=== PATIENT | male | born 1995 | race African-American/Black ===

== ENCOUNTER 2016-12-23 10:28 | Emergency (ER) | payer OTHER ==
[~2016-12-23] VITALS: Ht 180.3 cm; Wt 61.2 kg
[~2016-12-23 10:28] MED LIST: ALBUTEROL0.09 MG/A2 IH; KEFLEX500 M1 PO; MOTRIN600 MG PO; Motrin,Rufen800 MG PO; NAPROSYN500 MG PO; SINGULAIR10 MG PO
[2016-12-23 10:45] VITALS: BP 130/77
[2016-12-23 11:07] LABS: HEMATOCRIT 46.4 % (42.0-52.0); HEMOGLOBIN 16.1 g/dl (14.0-18.0); MEAN CELL VOLUME 86.4 fl (80.0-94.0); MEAN CORPUSCULAR HGB CONC 34.7 g/dl (33.0-37.0); MEAN PLATELET VOLUME 9.9 fl (9.6-12.3); PLATELET COUNT AUTOMATED 195 10*3/uL (130-400); RED BLOOD COUNT 5.37 10*6/uL (4.50-5.90); RED CELL DISTRI WIDTH 12.6 % (0-14.5); WHITE BLOOD COUNT 13.2 10*3/uL (4.8-10.8)
[2016-12-23 11:20] LABS: ALBUMIN 4.7 gm/dl (3.1-4.5); ALKALINE PHOSPHATASE 67 U/L (45-117); BUN 15 mg/dl (7-24); CHLORIDE 106 mmol/L (98-107); CREATININE 1.11 mg/dL (0.70-1.30); POTASSIUM 4.4 mmol/L (3.5-5.1); SGOT/AST 24 IU/L (3-35); SGPT/ALT 26 U/L (12-78); SODIUM 141 mmol/L (136-145); TOTAL PROTEIN 8.3 gm/dL (6.4-8.2)
[2016-12-23 11:21] LABS: BILIRUBIN 1+ (NEGATIVE); BLOOD NEGATIVE (NEGATIVE); CLARITY SL CLOUDY (CLEAR); COLOR YELLOW (YELLOW); GLUCOSE NEGATIVE (NEGATIVE); KETONE 1+ (NEGATIVE); LEUKO ESTERASE NEGATIVE (NEGATIVE); NITRITE NEGATIVE (NEGATIVE); SPECIFIC GRAVITY >= 1.030 (1.005-1.030); UROBILINOGEN 0.2 E.U./dl (0.2-1.0)
[2016-12-23 11:32] LABS: BACTERIA TRACE; MUCOUS 3+
[2016-12-23 11:36] LABS: TOTAL CELLS COUNTED 100 #CELLS
[2016-12-23] MEDS ORDERED: ZOFRAN4 MG PO (11:36)
[2016-12-23 11:38] LABS: PLATELET SUFFICIENCY NORMAL (NORMAL); VACUOLATION OF NEUTROPHILS SLIGHT
== END 2016-12-23 14:29 | disposition home or self-care (01) ==
LOC: ED 10:28
PROVIDERS: Nurse Practitioner Family
DX: K52.9 Noninfective gastroenteritis and colitis, unspecified (principal); R03.0 Elevated blood-pressure reading, without diagnosis of hypertension; F17.200 Nicotine dependence, unspecified, uncomplicated

== ENCOUNTER 2017-11-19 18:25 | Emergency (ER) | payer OTHER ==
[~2017-11-19] VITALS: Ht 180.3 cm; Wt 63.5 kg
[~2017-11-19 18:25] MED LIST changes: +ZOFRAN4 MG PO
[2017-11-19 18:29] VITALS: BP 121/69
[2017-11-19] MEDS ORDERED: AMOXICILLIN500 M2 PO (19:33)
[2017-11-19] MEDS ORDERED: FLONASE ALLERG9.9 ML NAS (19:33)
== END 2017-11-19 19:43 | disposition home or self-care (01) ==
LOC: ED 18:25
DX: J01.90 Acute sinusitis, unspecified (principal)

== ENCOUNTER 2018-02-27 13:06 | Emergency (ER) | payer OTHER ==
[~2018-02-27] VITALS: Ht 177.8 cm; Wt 61.2 kg
[~2018-02-27 13:06] MED LIST changes: +AMOXICILLIN500 M2 PO; +FLONASE ALLERG9.9 ML NAS
[2018-02-27 13:07] VITALS: BP 139/81
[2018-02-27] MEDS ORDERED: AMOXICILLIN500 M2 PO (14:57)
[2018-02-27] MEDS ORDERED: ZOFRAN4 MG PO (14:57)
[2018-02-27] MEDS ORDERED: ZYRTEC10 MG PO (14:57)
== END 2018-02-27 15:13 | disposition home or self-care (01) ==
LOC: ED 13:06
DX: J01.90 Acute sinusitis, unspecified (principal); Z79.2 Long term (current) use of antibiotics; Z79.899 Other long term (current) drug therapy

== ENCOUNTER → 2018-04-24 | Outpatient (CLI) | payer OTHER ==
[~2018-04-24] MED LIST changes: +ZYRTEC10 MG PO
[2018-04-24 16:40] LABS: BASO # 0.1 10*3/uL (0.0-0.1); BASO % 0.5 % (0.0-1.0); EOS # 0.1 10*3/uL (0.0-0.4); EOS % 0.7 % (1.0-4.0); HEMATOCRIT 48.1 % (42.0-52.0); HEMOGLOBIN 16.3 g/dl (14.0-18.0); LYMPH # 0.4 10*3/uL (1.3-4.4); LYMPH % 3.7 % (27.0-41.0); MEAN CELL VOLUME 89.1 fl (80.0-94.0); MEAN CORPUSCULAR HGB 30.2 pg (27.0-31.0); MEAN CORPUSCULAR HGB CONC 33.9 g/dl (33.0-37.0); MEAN PLATELET VOLUME 10.2 fl (9.6-12.3); MONO # 0.5 10*3/uL (0.1-1.0); MONO % 5.5 % (3.0-9.0); NEUT # 8.7 10*3/uL (2.3-7.9); NEUT % 89.4 % (47.0-73.0); PLATELET COUNT AUTOMATED 181 10*3/uL (130-400); RED CELL DISTRI WIDTH 12.1 % (0-14.5); WHITE BLOOD COUNT 9.7 10*3/uL (4.8-10.8)
[2018-04-24 17:17] LABS: ALBUMIN 4.3 gm/dl (3.1-4.5); ALKALINE PHOSPHATASE 59 U/L (45-117); BUN 16 mg/dl (7-24); CHLORIDE 106 mmol/L (98-107); CHOLESTEROL 130 mg/dL (<200); CREATININE 1.13 mg/dL (0.70-1.30); HDL CHOLESTEROL 49 mg/dl (40-60); LDL CHOLESTEROL 69 mg/dL (9-159); SGOT/AST 17 IU/L (3-35); SGPT/ALT 20 U/L (12-78); SODIUM 140 mmol/L (136-145); TOTAL PROTEIN 7.5 gm/dL (6.4-8.2); TRIGLYCERIDES 59 mg/dl (<150); VLDL CHOLESTEROL 12 mg/dL (6-40)
== END | disposition home or self-care (01) ==
LOC: LAB 16:23
PROVIDERS: Pediatrics
DX: R11.10 Vomiting, unspecified (principal)

== ENCOUNTER 2019-02-27 16:28 | Emergency (ER) | payer OTHER ==
[~2019-02-27] VITALS: Ht 177.8 cm; Wt 63.5 kg
[2019-02-27 16:38] VITALS: BP 119/68
== END 2019-02-27 17:54 | disposition home or self-care (01) ==
LOC: ED 16:28
DX: J02.9 Acute pharyngitis, unspecified (principal); R51 Headache; R05 Cough; R11.0 Nausea; J45.909 Unspecified asthma, uncomplicated; Z79.2 Long term (current) use of antibiotics; Z79.899 Other long term (current) drug therapy

== ENCOUNTER 2019-03-01 05:02 | Emergency (ER) | payer OTHER ==
[~2019-03-01] VITALS: Ht 177.8 cm; Wt 63.5 kg
[2019-03-01 05:10] VITALS: BP 110/68
== END 2019-03-01 06:31 | disposition home or self-care (01) ==
LOC: ED 05:02
DX: R07.89 Other chest pain (principal); R07.81 Pleurodynia; R06.00 Dyspnea, unspecified; R05 Cough; J45.909 Unspecified asthma, uncomplicated

== ENCOUNTER 2020-02-18 17:28 | Emergency (ER) | payer OTHER ==
[~2020-02-18] VITALS: Ht 177.8 cm; Wt 64.0 kg
[2020-02-18 17:44] VITALS: BP 125/83
[2020-02-18] MEDS ORDERED: ANUSOL-HC25 MG R (20:56)
[2020-02-18] MEDS ORDERED: DULCOLAX STOOL100 MG PO (20:56)
== END 2020-02-18 21:19 | disposition home or self-care (01) ==
LOC: ED 17:28
DX: K64.4 Residual hemorrhoidal skin tags (principal); J45.909 Unspecified asthma, uncomplicated; F17.200 Nicotine dependence, unspecified, uncomplicated

== ENCOUNTER 2022-04-14 22:57 | Emergency (ER) | payer SELFPAY ==
[~2022-04-14] VITALS: Ht 177.8 cm; Wt 63.5 kg
[~2022-04-14 22:57] MED LIST changes: +ANUSOL-HC25 MG R; +DULCOLAX STOOL100 MG PO
[2022-04-14 23:05] VITALS: BP 136/82
[2022-04-14] MEDS ORDERED: VIBRA-TAB100 MG PO (23:10)
== END 2022-04-14 23:38 | disposition home or self-care (01) ==
LOC: ED 22:57
DX: S61.452A Open bite of left hand, initial encounter (principal); J45.909 Unspecified asthma, uncomplicated; W55.01XA Bitten by cat, initial encounter; Y93.89 Activity, other specified; Y92.89 Other specified places as the place of occurrence of the external cause; Y99.8 Other external cause status

== ENCOUNTER 2023-10-28 09:18 | Emergency (ER) | payer OTHER ==
[~2023-10-28] VITALS: Ht 177.8 cm; Wt 68.0 kg
[~2023-10-28 09:18] MED LIST changes: +VIBRA-TAB100 MG PO
[2023-10-28 09:39] VITALS: BP 109/71
== END 2023-10-28 11:59 | disposition home or self-care (01) ==
LOC: ED 09:18
DX: S81.012A Laceration without foreign body, left knee, initial encounter (principal); J45.909 Unspecified asthma, uncomplicated; W22.8XXA Striking against or struck by other objects, initial encounter; Y93.89 Activity, other specified; Y92.89 Other specified places as the place of occurrence of the external cause; Y99.8 Other external cause status

== ENCOUNTER 2024-09-02 03:55 | Emergency (ER) | payer SELFPAY ==
[2024-09-02] MEDS ORDERED: Ondansetron Hydrochloride 4 MG/2 ML VIAL IV ONE (04:10)
[2024-09-02] MEDS ORDERED: SODIUM CHLORIDE 0.9% 1,000 ML IV ONE (04:10)
[2024-09-02 04:21] VITALS: BP 148/78
[2024-09-02 04:27] LABS: BASO # 0.1 10*3/uL (0.0-0.1); BASO % 0.7 % (0.0-1.0); EOS # 0.2 10*3/uL (0.0-0.4); EOS % 3.1 % (1.0-4.0); MEAN CELL VOLUME 87.7 fl (80.0-94.0); MEAN CORPUSCULAR HGB 30.3 pg (27.0-31.0); MEAN PLATELET VOLUME 10.1 fl (9.6-12.3); MONO # 0.5 10*3/uL (0.1-1.0); MONO % 6.5 % (3.0-9.0); NEUT # 4.2 10*3/uL (2.3-7.9); NEUT % 55.6 % (47.0-73.0); NUCLEATED RED BLOOD CELL 0.0 % (0.0-0.0); NUCLEATED RED BLOOD CELL 0.0 10*3/uL (0.0-0.0); PLATELET COUNT AUTOMATED 217 10*3/uL (130-400); RED CELL DISTRI WIDTH 12.1 % (0-14.5)
[2024-09-02 04:47] LABS: BUN 10 mg/dl (9-23); SGPT/ALT 13 U/L (5-49)
[2024-09-02 07:28] LABS: BILIRUBIN Negative (Negative); BLOOD 2+ (Negative); CLARITY Clear (Clear); COLOR Yellow (Yellow); KETONE Trace (Negative); LEUKO ESTERASE Negative (Negative); NITRITE Negative (Negative); PH 6.0 (4.5-8.0); SPECIFIC GRAVITY 1.020 (1.001-1.030); UROBILINOGEN 1.0 E.U./dl (0.0-1.0)
[2024-09-02] MEDS ORDERED: diphenhydrAMINE hydrochloride 50 MG/ML VIAL IV ONE (07:30)
[2024-09-02] MEDS ORDERED: Metoclopramide Hydrochloride 10 MG/2 ML VIAL IV ONE (07:30)
[2024-09-02 07:45] LABS: MUCOUS 1+; RBC 16-20 rbc/hpf (0-2)
[2024-09-02] MEDS ORDERED: FLOMAX0.4 MG PO (08:46)
[2024-09-02] MEDS ORDERED: CIPRO500 MG PO (08:46)
[2024-09-02] MEDS ORDERED: MELOXICAM15 MG PO (08:46)
== END 2024-09-02 08:56 | disposition home or self-care (01) ==
LOC: ED 03:55
PROVIDERS: Emergency Medicine
DX: N20.0 Calculus of kidney (principal); J45.909 Unspecified asthma, uncomplicated; Z79.899 Other long term (current) drug therapy